=== PATIENT | male | born 1950 | race Caucasian/White ===

== ENCOUNTER → 2019-05-08 | Outpatient (CLI) | payer OTHER ==
[~2019-05-08] MED LIST: ASPI-1197 PO; PRAV10TA39 PO
== END | disposition home or self-care (01) ==
LOC: RAH 10:11
PROVIDERS: ATTEND Internal Medicine Cardiovascular Disease
DX: Z13.6 Encounter for screening for cardiovascular disorders (principal)
CPT/HCPCS: 75571